=== PATIENT | female | born 1990 | race Caucasian/White ===

== ENCOUNTER 2024-01-16 08:34 | Outpatient (CLI) | payer OTHER ==
[~2024-01-16] VITALS: Ht 170.2 cm; Wt 110.3 kg
[2024-01-16] MEDS ORDERED: PRENTAB9 PO (09:11)
[2024-01-16] MEDS ORDERED: LEVO112T2 PO (09:11)
[2024-01-16 09:34] VITALS: BP 115/82
[2024-01-16 10:08] LABS: HEMATOCRIT 35.9 % (36.0-47.0); HEMOGLOBIN 12.4 g/dl (12.0-15.5); MEAN CORPUSCULAR HEMOGLOBIN 29.9 pg (27.0-33.0); MEAN CORPUSCULAR HGB CONC 34.5 g/dl (32.0-36.5); MEAN CORPUSCULAR VOLUME 86.5 fl (80.0-96.0); PLATELET COUNT, AUTOMATED 228 10^3/uL (150-450); RED BLOOD COUNT 4.15 10^6/uL (4.00-5.40); WHITE BLOOD COUNT 9.5 10^3/uL (4.0-10.0)
[2024-01-16 10:20] LABS: INR 0.92; PROTHROMBIN TIME 12.1 SECONDS (12.5-14.5)
[2024-01-16 10:34] LABS: ALBUMIN 2.8 G/DL (3.2-5.2); ALKALINE PHOSPHATASE 106 U/L (46-116); ALT/SGPT 10 U/L (7.0-40); AST/SGOT 18 U/L (<34); BILIRUBIN,TOTAL 1.3 MG/DL (0.3-1.2); BLOOD UREA NITROGEN 9 MG/DL (9-23); CALCIUM LEVEL 9.1 MG/DL (8.5-10.1); CARBON DIOXIDE LEVEL 25 MMOL/L (20-31); CHLORIDE LEVEL 105 MMOL/L (98-107); GLOMERULAR FILTRATION RATE > 60.0 (>60); GLUCOSE, FASTING 74 MG/DL (60-100); POTASSIUM SERUM 4.1 MMOL/L (3.5-5.1); SODIUM LEVEL 135 MMOL/L (136-145); TOTAL PROTEIN 6.6 G/DL (5.7-8.2)
[2024-01-16 10:36] LABS: THYROID STIMULATING HORMONE 2.751 uIU/ML (0.55-4.78)
[2024-01-16 10:54] VITALS: BP 121/85
[2024-01-17 06:09] LABS: RUBELLA IgG FOR TORCH EVAL 9.03 index (Immune >0.99); RUBELLA IgM FOR TORCH EVAL <20.0 AU/mL (0.0-19.9); TOXOPLASMA IgG ABY 5.1 IU/mL (0.0-7.1)
[2024-01-17 09:57] LABS: DRVV SCREEN 37.2 SECONDS
[2024-01-17 10:12] LABS: PTT LUPUS TYPE ANTICOAG SCREEN 0.92 (0-1.20)
[2024-01-30 17:09] LABS: BETA-2 GLYCOPROTEIN I ABY IGA <9 (0-25); BETA-2 GLYCOPROTEIN I ABY IGG <9 (0-20); BETA-2 GLYCOPROTEIN I ABY IGM <9 (0-32); CARDIOLIPIN IGA ANTIBODY <9 APL U/mL (0-11); CARDIOLIPIN IGG ANTIBODY <9 GPL U/mL (0-14); CARDIOLIPIN IGM ANTIBODY <9 MPL U/mL (0-12); CYTOMEGALOVIRUS IgG ANTIBODY <0.60 U/mL (0.00-0.59); CYTOMEGALOVIRUS IgM ANTIBODY <30.0 AU/mL (0.0-29.9)
== END 2024-01-16 10:55 | disposition home or self-care (01) ==
LOC: M LDO 08:34
PROVIDERS: ATTEND Obstetrics & Gynecology
DX: O36.8130 Decreased fetal movements, third trimester, not applicable or unspecified (principal); Z3A.29 29 weeks gestation of pregnancy; O99.283 Endocrine, nutritional and metabolic diseases complicating pregnancy, third trimester; E03.9 Hypothyroidism, unspecified; Z79.890 Hormone replacement therapy; O36.5930 Maternal care for other known or suspected poor fetal growth, third trimester, not applicable or unspecified; O36.4XX0 Maternal care for intrauterine death, not applicable or unspecified; Z88.0 Allergy status to penicillin; Z88.8 Allergy status to other drugs, medicaments and biological substances

== ENCOUNTER 2024-01-16 17:39 | Inpatient (IN) | payer OTHER ==
[~2024-01-16] VITALS: Ht 170.2 cm; Wt 110.3 kg
[~2024-01-16 17:39] MED LIST: LEVO112T2 PO; PRENTAB9 PO
[2024-01-16 17:55] VITALS: BP 130/87
[2024-01-16] MEDS ORDERED: HOME MED LIST COMPLETE! XX SCH (18:05)
[2024-01-16] MEDS ORDERED: OXYTOCIN DRIP 30 UNITS in IV 1 EA IV PRN (18:30)
[2024-01-16] MEDS ORDERED: TRANEXAMIC ACID INJection 1,000 MG in NS 100 ML IV PRN (18:30)
[2024-01-16] MEDS ORDERED: RHOGAM 300MCG (1500IU) INJ IM SCH (18:30)
[2024-01-16] MEDS ORDERED: LIDOCAINE 1% MDV 20ML VIAL INFIL PRN (18:30)
[2024-01-16] MEDS ORDERED: OXYTOCIN INJ 10UNITS/ML 1ML VIAL IM PRN (18:30)
[2024-01-16] MEDS ORDERED: METHYLERGONOVINE MALEATE 0.2MG/ML 1ML VIAL IM PRN (18:30)
[2024-01-16] MEDS ORDERED: CARBOPROST TROMETHAMINE 250 MCG/ML AMP IM PRN (18:30)
[2024-01-16] MEDS ORDERED: NALBUPHINE HCL 1MG/0.1ML (100MG/10ML) MDV IV PRN (19:20)
[2024-01-16] MEDS ORDERED: diphenhydrAMINE 50MG CAP PO PRN (19:20)
[2024-01-16] MEDS: miSOPROStol 50MCG 1/2 TABLET PO SCH (19:42)
[2024-01-16] MEDS: ONDANSETRON 4MG 2ML VIAL IV PRN (21:06)
[2024-01-17] VITALS (19 sets, daily range): BP systolic 109–134; BP diastolic 59–78
[2024-01-17 00:45] LABS: AMPHETAMINES URINE REFLEX NEGATIVE (NEGATIVE); BARBITURATES URINE REFLEX NEGATIVE (NEGATIVE); BENZODIAZEPINES URINE REFLEX NEGATIVE (NEGATIVE); CANNABINOIDS URINE REFLEX NEGATIVE (NEGATIVE); COCAINE METABOLITE URINE REFLE NEGATIVE (NEGATIVE); METHADONE URINE REFLEX NEGATIVE (NEGATIVE); OPIATES URINE REFLEX NEGATIVE (NEGATIVE); PHENCYCLIDINE URINE REFLEX NEGATIVE (NEGATIVE)
[2024-01-17 00:48] LABS: CREATININE,RANDOM URINE 27.6 MG/DL
[2024-01-17 00:51] LABS: TOTAL PROTEIN,RANDOM URINE < 6.0 MG/DL (0.0-14.0)
[2024-01-17] MEDS: LEVOTHYROXINE 112MCG TABLET (0.112MG) PO SCH (06:13)
[2024-01-17] MEDS: miSOPROStol 50MCG 1/2 TABLET PO SCH (08:02)
[2024-01-17] MEDS: LR 1,000 ML IV ONE (14:49)
[2024-01-17] MEDS ORDERED: LR 500 ML IV PRN (16:30)
[2024-01-17] MEDS ORDERED: NALOXONE INJ 0.4MG/1ML VIAL IV PRN (16:30)
[2024-01-17] MEDS ORDERED: ONDANSETRON 4MG 2ML VIAL IV PRN (16:30)
[2024-01-17] MEDS ORDERED: diphenhydrAMINE 50MG/ML VIAL IV PRN (16:30)
[2024-01-17] MEDS ORDERED: ePHEDrine SULFATE 25 MG/5 ML(5MG/ML) SYRINGE IVP PRN (16:30)
[2024-01-17] MEDS ORDERED: EPIDURAL/PCA KEYS XX PRN (16:30)
[2024-01-17] MEDS: FENTANYL/ROPIVACAINE/NACL BAG 100 ML EPIDURAL SCH (17:42)
[2024-01-17] MEDS ORDERED: diphenhydrAMINE 50MG CAP PO PRN (18:00)
[2024-01-17] MEDS: OXYTOCIN DRIP 30 UNITS in IV 1 EA IV SCH (20:09)
[2024-01-18] VITALS (22 sets, daily range): BP systolic 109–156; BP diastolic 60–101
[2024-01-18] MEDS: LR 1,000 ML IV SCH (09:37)
[2024-01-18] MEDS: OXYTOCIN DRIP 30 UNITS in IV 1 EA IV PRN (14:42)
[2024-01-18] MEDS ORDERED: DOCUSATE SODIUM 100MG CAPSULE PO PRN (14:45)
[2024-01-18] MEDS ORDERED: IBUPROFEN 600MG TAB PO PRN (14:45)
[2024-01-18] MEDS ORDERED: RHOGAM 300MCG (1500IU) INJ IM SCH (14:45)
[2024-01-18] MEDS ORDERED: ACETAMINOPHEN 500 MG TAB PO PRN (14:45)
[2024-01-18] MEDS ORDERED: ACETAMINOPHEN TAB 650MG DOSE (2X325MG) PO PRN (14:45)
[2024-01-18] MEDS ORDERED: DIBUCAINE 1% OINTMENT 30GM TOP PRN (14:45)
[2024-01-18] MEDS ORDERED: METHYLERGONOVINE MALEATE 0.2 MG TAB PO PRN (14:45)
[2024-01-18 17:14] LABS: ANTI PARVO VIRUS LEVEL IgM 0.2 index (0.0-0.8)
[2024-01-18] MEDS: IBUPROFEN 800 MG TAB PO PRN (18:09)
[2024-01-18] MEDS: RHOGAM 300MCG (1500IU) INJ IM SCH (21:45)
[2024-01-19 06:02] VITALS: BP 121/65
[2024-01-19] MEDS: PRENATAL VITAMINS CHEWABLE TABLET PO SCH (08:57)
== END 2024-01-19 09:36 | disposition home or self-care (01) | DRG 807 ==
LOC: M LDI 17:39
PROVIDERS: ADMIT Obstetrics & Gynecology; ATTEND Advanced Practice Midwife
PROC: 3E0P7GC Introduction of Other Therapeutic Substance into Female Reproductive, Via Natural or Artificial Opening (ICD-10-PCS; 2024-01-16)
PROC: 10E0XZZ Delivery of Products of Conception, External Approach (ICD-10-PCS; principal; 2024-01-18)
DX: O36.4XX0 Maternal care for intrauterine death, not applicable or unspecified (principal); Z37.1 Single stillbirth; Z3A.29 29 weeks gestation of pregnancy; O32.1XX0 Maternal care for breech presentation, not applicable or unspecified; O69.1XX0 Labor and delivery complicated by cord around neck, with compression, not applicable or unspecified; O36.5930 Maternal care for other known or suspected poor fetal growth, third trimester, not applicable or unspecified

== ENCOUNTER 2024-10-25 17:25 | Outpatient (CLI) | payer OTHER ==
[~2024-10-25] VITALS: Ht 170.2 cm; Wt 109.4 kg
[2024-10-25 17:40] VITALS: BP 140/80
[2024-10-25] MEDS ORDERED: ASPI81CH33 PO (17:49)
[2024-10-25] MEDS ORDERED: MIRA3350 PO (17:50)
[2024-10-25 17:57] VITALS: BP 124/66
[2024-10-25 20:15] VITALS: BP 119/63
== END 2024-10-25 20:40 | disposition home or self-care (01) ==
LOC: M LDO 17:25
PROVIDERS: ATTEND Obstetrics & Gynecology
DX: O36.8130 Decreased fetal movements, third trimester, not applicable or unspecified (principal); Z3A.30 30 weeks gestation of pregnancy
CPT/HCPCS: 59025; 76815; 76819; 76820; G0463

== ENCOUNTER 2024-12-05 12:54 | Outpatient (CLI) | payer OTHER ==
[~2024-12-05] VITALS: Ht 170.2 cm; Wt 111.3 kg
[~2024-12-05 12:54] MED LIST changes: +ASPI81CH33 PO; +MIRA3350 PO
[2024-12-05] MEDS ORDERED: COLA100C5 PO (13:18)
[2024-12-05] MEDS ORDERED: HOME MED LIST COMPLETE! XX SCH (13:20)
[2024-12-05 13:24] VITALS: BP 123/80
[2024-12-05] MEDS ORDERED: LR 1,000 ML IV SCH (14:00)
[2024-12-05] MEDS: ONDANSETRON 4MG 2ML VIAL IV ONE (14:24)
[2024-12-05 14:29] LABS: HEMATOCRIT 33.8 % (36.0-47.0); HEMOGLOBIN 11.6 g/dl (12.0-15.5); MEAN CORPUSCULAR HEMOGLOBIN 27.4 pg (27.0-33.0); MEAN CORPUSCULAR HGB CONC 34.3 g/dl (32.0-36.5); MEAN CORPUSCULAR VOLUME 79.9 fl (80.0-96.0); PLATELET COUNT, AUTOMATED 206 10^3/uL (150-450); RED BLOOD COUNT 4.23 10^6/uL (4.00-5.40); WHITE BLOOD COUNT 8.7 10^3/uL (4.0-10.0)
[2024-12-05 14:51] LABS: ALBUMIN 2.8 G/DL (3.2-5.2); ALKALINE PHOSPHATASE 119 U/L (35-104); ALT/SGPT < 9 U/L (7.0-40); AST/SGOT 16 U/L (<34); BILIRUBIN,TOTAL 1.1 MG/DL (0.3-1.2); BLOOD UREA NITROGEN 6 MG/DL (9-23); CALCIUM LEVEL 9.1 MG/DL (8.5-10.1); CARBON DIOXIDE LEVEL 21 MMOL/L (20-31); CHLORIDE LEVEL 107 MMOL/L (98-107); CREATININE FOR GFR 0.75 MG/DL (0.55-1.30); GLOMERULAR FILTRATION RATE > 60.0 (>60); GLUCOSE, FASTING 69 MG/DL (60-100); POTASSIUM SERUM 4.4 MMOL/L (3.5-5.1); SODIUM LEVEL 139 MMOL/L (136-145); TOTAL PROTEIN 6.4 G/DL (5.7-8.2)
[2024-12-05] MEDS: MULTIVITAMIN -ADULT INJECTION 10 ML in NS (Normal Saline) 0.9% 1,000 ML IV ONE (14:54)
[2024-12-05 14:59] VITALS: BP 131/57
[2024-12-10] MEDS ORDERED: IBUP80TA PO (05:42)
[2024-12-10] MEDS ORDERED: OXYC1TAB23 PO (05:42)
== END 2024-12-05 17:17 | disposition home or self-care (01) ==
LOC: M LDO 12:54
PROVIDERS: ATTEND Advanced Practice Midwife
DX: O36.8130 Decreased fetal movements, third trimester, not applicable or unspecified (principal); O26.893 Other specified pregnancy related conditions, third trimester; O26.23 Pregnancy care for patient with recurrent pregnancy loss, third trimester; O99.820 Streptococcus B carrier state complicating pregnancy; R25.2 Cramp and spasm; R11.0 Nausea; Z3A.37 37 weeks gestation of pregnancy; B95.1 Streptococcus, group B, as the cause of diseases classified elsewhere
CPT/HCPCS: 36415; 59025; 80053; 85027; 96360; 96361; 96374; G0463; J2405